=== PATIENT | male | born 1995 | race Caucasian/White ===

== ENCOUNTER 2020-11-08 21:25 | Emergency (ER) | payer BC ==
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
[2020-11-08 22:15] LABS: CHLORIDE,CL 100 mEq/L (98-106); SODIUM,NA 139 mEq/L (136-145)
[2020-11-08] MEDS: Acetaminophen 500 MG Tab PO ONE (22:30)
[2020-11-08] MEDS: cefTRIAXone 1 GM Vial IM ONE (22:43)
[2020-11-08] MEDS: methylPREDNISolone Acetate 80 MG/ML SDV IM ONE (22:43)
[2020-11-08] MEDS: Tetracaine HCl/PF 0.5% 4 ML Bottle EYELF ONE (23:05)
[2020-11-08] MEDS: Fluorescein 1 MG Ophth Strip EYELF ONE (23:06)
== END 2020-11-08 23:05 | disposition home or self-care (01) ==
LOC: CC.ED 21:25
DX: S00.12XA Contusion of left eyelid and periocular area, initial encounter (principal); J06.9 Acute upper respiratory infection, unspecified; Z72.0 Tobacco use; Z88.1 Allergy status to other antibiotic agents; Z20.822 Contact with and (suspected) exposure to COVID-19; X58.XXXA Exposure to other specified factors, initial encounter
CPT/HCPCS: 36415; 71046; 80053; 85025; 86140; 96372; 99283-25; A9270-GY; J0696; J1040; U0002

== ENCOUNTER 2021-10-09 09:04 | Emergency (ER) | payer BC ==
[2021-10-09] MEDS: Ondansetron 4 MG Tab.DIS PO ONE (09:24)
[2021-10-09] MEDS: Ketorolac 60 MG/2 ML SDV IM ONE (09:52)
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
[2021-10-09] MEDS: Take Home: Ondansetron 4 MG Tab.DIS, 2 Tab Pack PO ONE (09:53)
== END 2021-10-09 10:00 | disposition home or self-care (01) ==
LOC: CC.ED 09:04
DX: U07.1 COVID-19 (principal); Z88.1 Allergy status to other antibiotic agents; Z72.0 Tobacco use
CPT/HCPCS: 87804; 96372; 99284; A9270-GY; J1885; U0002